=== PATIENT | female | born 1970 ===

== ENCOUNTER 2022-01-12 10:15 | Inpatient (IN) | payer OTHER ==
[~2022-01-12] VITALS: Ht 157.5 cm; Wt 60.8 kg
[2022-01-12] MEDS ORDERED: ANASTROZOLE1 MG PO (12:16)
[2022-01-12] MEDS ORDERED: GLUMETZA1000 MG PO (12:16)
[2022-01-12] MEDS ORDERED: CARVEDILOL (12:17)
[2022-01-15] MEDS ORDERED: CARVEDILOL3.125 M1 (15:29)
== END 2022-01-16 16:46 | disposition home or self-care (01) | DRG 743 ==
LOC: OB/GYN 01-14 06:45 → O/R 01-14 06:45 → SURH 01-14 10:15 → OB/GYN 01-14 13:42 → SURH 01-14 17:30 → OB/GYN 01-16 16:46
PROVIDERS: ADMIT Specialist; ATTEND Specialist
PROC: 0UT70ZZ Resection of Bilateral Fallopian Tubes, Open Approach (ICD-10-PCS; 2022-01-14)
PROC: 0UT20ZZ Resection of Bilateral Ovaries, Open Approach (ICD-10-PCS; 2022-01-14)
PROC: 0UB10ZZ Excision of Left Ovary, Open Approach (ICD-10-PCS; 2022-01-14)
PROC: 0UT90ZZ Resection of Uterus, Open Approach (ICD-10-PCS; principal; 2022-01-14 17:30)
DX: N84.1 Polyp of cervix uteri (principal); D27.1 Benign neoplasm of left ovary; N80.03 Adenomyosis of the uterus; Z20.822 Contact with and (suspected) exposure to COVID-19